=== PATIENT | female | born 1995 | race Two or more races ===

== ENCOUNTER 2020-09-03 06:39 | Observation (INO) | payer MEDICAID ==
[~2020-09-03] VITALS: Ht 152.4 cm; Wt 59.0 kg
[2020-09-03] MEDS ORDERED: PREN1TAB78 MT (07:50)
== END 2020-09-03 08:15 | disposition home or self-care (01) ==
LOC: 8 EST LDRP 06:39
PROVIDERS: ADMIT Specialist; ATTEND Specialist
DX: O46.93 Antepartum hemorrhage, unspecified, third trimester (principal); Z3A.38 38 weeks gestation of pregnancy
CPT/HCPCS: 59025; 76815; 76818; G0378; 99281

== ENCOUNTER 2021-09-01 18:19 | Observation (INO) | payer MEDICARE ==
[~2021-09-01] VITALS: Ht 157.5 cm; Wt 82.6 kg
[~2021-09-01 18:19] MED LIST: PREN1TAB78 MT
== END 2021-09-01 21:00 | disposition home or self-care (01) ==
LOC: 8 EST LDRP 18:19
PROVIDERS: ADMIT Obstetrics & Gynecology; ATTEND Obstetrics & Gynecology
DX: O62.9 Abnormality of forces of labor, unspecified (principal); O42.913 Preterm premature rupture of membranes, unspecified as to length of time between rupture and onset of labor, third trimester; Z3A.32 32 weeks gestation of pregnancy
CPT/HCPCS: 59025; 76815; 76818; G0378; 99281

== ENCOUNTER 2021-09-26 20:14 | Observation (INO) | payer MEDICARE ==
[~2021-09-26] VITALS: Ht 152.4 cm; Wt 56.7 kg
[2021-09-26] MEDS ORDERED: FERR-71 PO (20:56)
[2021-09-26] MEDS ORDERED: LACTATED RINGERS 500 ML IV NR (22:30)
[2021-09-26] MEDS ORDERED: LACTATED RINGERS 1,000 ML IV SCH (23:00)
[2021-09-26 23:28] LABS: CLARITY URINE CLEAR (CLEAR); COLOR URINE YELLOW (YELLOW); KETONES URINE NEGATIVE (NEGATIVE); LEUKOCYTE ESTERASE URINE TRACE (NEGATIVE); NITRITE URINE NEGATIVE (NEGATIVE); OCCULT BLOOD URINE NEGATIVE (NEGATIVE); PROTEIN URINE NEGATIVE (NEGATIVE); SPECIFIC GRAVITY URINE 1.008 (1.005-1.030); UROBILINOGEN URINE 0.2 E.U./dL (0.2-1.0)
== END 2021-09-27 01:40 | disposition home or self-care (01) ==
LOC: 8 EST LDRP 20:14
PROVIDERS: ADMIT Obstetrics & Gynecology; ATTEND Obstetrics & Gynecology
DX: O26.893 Other specified pregnancy related conditions, third trimester (principal); R10.30 Lower abdominal pain, unspecified; Z3A.36 36 weeks gestation of pregnancy
CPT/HCPCS: 76815; 76818; 81003; 96360; 99281; G0378; 59025; 96361

== ENCOUNTER 2021-10-14 17:26 | Observation (INO) | payer MEDICARE ==
[~2021-10-14] VITALS: Ht 152.4 cm; Wt 56.2 kg
[~2021-10-14 17:26] MED LIST changes: +FERR-71 PO
== END 2021-10-14 19:02 | disposition home or self-care (01) ==
LOC: 8 EST LDRP 17:26
PROVIDERS: ADMIT Obstetrics & Gynecology; ATTEND Obstetrics & Gynecology
DX: O26.893 Other specified pregnancy related conditions, third trimester (principal); R10.2 Pelvic and perineal pain; O21.2 Late vomiting of pregnancy; Z3A.38 38 weeks gestation of pregnancy
CPT/HCPCS: 59025; 99281; G0378; G0379

== ENCOUNTER 2021-10-23 19:17 | Observation (INO) | payer MEDICARE ==
[2021-10-29] MEDS ORDERED: IBUP-2030 PO (07:06)
== END 2021-10-23 21:28 | disposition home or self-care (01) ==
LOC: 8 EST LDRP 19:17
PROVIDERS: ADMIT Obstetrics & Gynecology; ATTEND Obstetrics & Gynecology
DX: O62.9 Abnormality of forces of labor, unspecified (principal); O48.0 Post-term pregnancy; Z3A.40 40 weeks gestation of pregnancy
CPT/HCPCS: 59025; 76815; 76818; G0378; 99281

== ENCOUNTER 2023-02-16 15:56 | Observation (INO) | payer MEDICARE ==
[~2023-02-16] VITALS: Ht 144.8 cm; Wt 49.4 kg
[~2023-02-16 15:56] MED LIST changes: +IBUP-2030 PO
[2023-02-16] MEDS ORDERED: RHO(D) IMMUNE GLOBULIN 300 MCG/SYR IM ONE (19:30)
[2023-02-16] MEDS ORDERED: CARBOPROST TROMETHAMINE 250 MCG/ML AMPUL IM PRN (19:30)
[2023-02-16] MEDS ORDERED: MISOPROSTOL 100MCG TABLET VG SCH (19:30)
[2023-02-16] MEDS ORDERED: METHYLERGONOVINE MALEATE 0.2 MG/ML IM PRN (19:30)
[2023-02-16] MEDS: LACTATED RINGERS 1,000 ML IV SCH (19:55)
[2023-02-16] MEDS: MISOPROSTOL 100MCG TABLET VG SCH (19:59)
[2023-02-16 20:32] LABS: BASOPHILS % 0.5 % (0.0-2.0); EOSINOPHILS % 0.6 % (0.0-5.0); HEMATOCRIT. 32.4 % (36.0-48.0); HEMOGLOBIN. 10.1 g/dL (12.0-16.0); LYMPHOCYTES % 23.5 % (20.0-50.0); MEAN CORPUSCULAR HEMOGLOBIN 23.8 pg (28.0-32.0); MEAN PLATELET VOLUME 8.9 fl (7.4-10.4); MONOCYTES % 6.5 % (2.0-8.0); NEUTROPHILS % 68.9 % (40.0-76.0); PLATELET 306 x1000/uL (130-400); RED BLOOD CELL COUNT 4.26 mill/uL (4.2-5.4); RED CELL DISTRIBUTION WIDTH 16.7 % (11.6-14.6)
[2023-02-16 21:10] LABS: HEPATITIS B SURFACE ANTIGEN NEGATIVE
[2023-02-16 23:39] LABS: CLARITY URINE CLEAR (CLEAR); COLOR URINE YELLOW (YELLOW); KETONES URINE NEGATIVE (NEGATIVE); LEUKOCYTE ESTERASE URINE TRACE (NEGATIVE); NITRITE URINE NEGATIVE (NEGATIVE); OCCULT BLOOD URINE NEGATIVE (NEGATIVE); PROTEIN URINE NEGATIVE (NEGATIVE); SPECIFIC GRAVITY URINE 1.026 (1.005-1.030); UROBILINOGEN URINE 0.2 E.U./dL (0.2-1.0)
[2023-02-16 23:50] LABS: *AMPHETAMINES SCREEN URINE NEGATIVE (NEGATIVE); *BARBITURATES SCREEN URINE NEGATIVE (NEGATIVE); *BENZODIAZEPINES SCREEN URINE NEGATIVE (NEGATIVE); *COCAINE SCREEN URINE NEGATIVE (NEGATIVE); CANNABINOID URINE SCREEN NEGATIVE (NEGATIVE); METHADONE URINE SCREEN NEGATIVE (NEGATIVE); OPIATES URINE SCREEN NEGATIVE (NEGATIVE); PHENCYCLIDINE URINE SCREEN NEGATIVE (NEGATIVE)
[2023-02-17] MEDS: MISOPROSTOL 100MCG TABLET VG SCH ×2 (00:16→04:09)
[2023-02-17] MEDS: LACTATED RINGERS 1,000 ML IV SCH (04:09)
[2023-02-17] MEDS ORDERED: MEPERIDINE HCL/PF 25MG/ML CPJ IM PRN (04:30)
[2023-02-17] MEDS: ONDANSETRON HCL 4MG/2ML INJ IV PRN (04:47)
[2023-02-17] MEDS: OXYTOCIN 30 UNITS/500ML NS PMX 500 ML IV SCH ×2 (06:48→10:08)
[2023-02-17 07:26] LABS: BASOPHILS % 0.4 % (0.0-2.0); EOSINOPHILS % 0.4 % (0.0-5.0); HEMATOCRIT. 28.8 % (36.0-48.0); HEMOGLOBIN. 9.4 g/dL (12.0-16.0); LYMPHOCYTES % 29.6 % (20.0-50.0); MEAN CORPUSCULAR HEMOGLOBIN 24.1 pg (28.0-32.0); MEAN CORPUSCULAR VOLUME 74.3 fL (81.0-99.0); MEAN PLATELET VOLUME 8.5 fl (7.4-10.4); MONOCYTES % 8.8 % (2.0-8.0); NEUTROPHILS % 60.8 % (40.0-76.0); PLATELET 279 x1000/uL (130-400); RED BLOOD CELL COUNT 3.88 mill/uL (4.2-5.4); RED CELL DISTRIBUTION WIDTH 16.4 % (11.6-14.6)
[2023-02-17] MEDS ORDERED: IBUPROFEN 400MG TABLET PO PRN (11:15)
[2023-02-17] MEDS ORDERED: IBUPROFEN 800MG TABLET PO PRN (11:15)
[2023-02-17] MEDS ORDERED: OXYTOCIN 30 UNITS/500ML NS PMX 500 ML IV SCH (11:15)
[2023-02-17 13:00] VITALS: BP 91/52; PULSE 72; RESP 18; TEMP 98.9; O2SAT 99
[2023-02-17 17:30] VITALS: BP 86/47; PULSE 68; RESP 18; TEMP 99
[2023-02-17 19:30] VITALS: BP 93/53; PULSE 67; RESP 20; TEMP 98.4; O2SAT 98
[2023-02-18] MEDS ORDERED: LACTATED RINGERS 1,000 ML IV SCH (03:00)
[2023-02-18 04:00] VITALS: BP 93/56; PULSE 88; RESP 18; TEMP 98.7
[2023-02-18 08:00] VITALS: BP 98/60; PULSE 71; RESP 18; TEMP 98.6; O2SAT 100
[2023-02-18] MEDS: ONDANSETRON HCL 4MG/2ML INJ IV PRN (08:36)
[2023-02-23 05:13] LABS: CYTOMEGALOVIRUS IGM AB < 30.0 AU/mL (0.0-29.9)
== END 2023-02-18 13:50 | disposition home or self-care (01) ==
LOC: 8 EST LDRP 15:56
PROVIDERS: ADMIT Obstetrics & Gynecology; ATTEND Obstetrics & Gynecology
DX: O36.4XX0 Maternal care for intrauterine death, not applicable or unspecified (principal); Z3A.16 16 weeks gestation of pregnancy; Z79.899 Other long term (current) drug therapy
CPT/HCPCS: 80305; 81003; 86703; 85025 ×2; 85730; 86850; 86900; 86901; 87340; 86592; 36415 ×2; 76815; 86762 ×2; 83036; 84443; 88309; 88307; 96372; 96374; 59821; 86695; 86696; 86788; 86789; 86645; 86644; 96376; J2405 ×2; G0378 ×3; 99281; J7120; J2590

== ENCOUNTER 2023-06-05 16:26 | Emergency (ER) | payer MEDICARE ==
[~2023-06-05] VITALS: Ht 152.4 cm; Wt 52.0 kg
[~2023-06-05 16:26] MED LIST changes: -FERR-71 PO; -PREN1TAB78 MT
[2023-06-05 16:28] VITALS: O2SAT 100
[2023-06-05 18:22] LABS: BASOPHILS % 0.6 % (0.0-2.0); DIFFERENTIAL COMMENT 0; EOSINOPHILS % 0.2 % (0.0-5.0); HEMATOCRIT. 33.7 % (36.0-48.0); HEMOGLOBIN. 10.3 g/dL (12.0-16.0); LYMPHOCYTES % 17.4 % (20.0-50.0); MEAN CORPUSCULAR HEMOGLOBIN 21.9 pg (28.0-32.0); MEAN CORPUSCULAR HGB CONC 30.6 g/dL (31.0-37.0); MEAN CORPUSCULAR VOLUME 71.5 fL (81.0-99.0); MEAN PLATELET VOLUME 8.4 fl (7.4-10.4); MONOCYTES % 8.3 % (2.0-8.0); NEUTROPHILS % 73.5 % (40.0-76.0); PLATELET 428 x1000/uL (130-400); RED BLOOD CELL COUNT 4.71 mill/uL (4.2-5.4); RED CELL DISTRIBUTION WIDTH 17.6 % (11.6-14.6); WHITE BLOOD COUNT 11.4 x1000/uL (4.5-11.0)
[2023-06-05 18:35] LABS: CHLORIDE 108 mEq/L (98-107); INDEX HEMOLYSI 1 (1-3); INDEX ICTERIC 1 (1-4); INDEX LIPEMIC 1 (1-3); POTASSIUM 3.7 mEq/L (3.5-5.1); SODIUM 138 mEq/L (136-145)
[2023-06-05 18:36] LABS: CLARITY URINE CLOUDY (CLEAR); COLOR URINE YELLOW (YELLOW); GLUCOSE URINE NEGATIVE (NEGATIVE); KETONES URINE NEGATIVE (NEGATIVE); LEUKOCYTE ESTERASE URINE TRACE (NEGATIVE); NITRITE URINE NEGATIVE (NEGATIVE); OCCULT BLOOD URINE 2+ (NEGATIVE); PH URINE 6.5 (4.5-8.0); PROTEIN URINE NEGATIVE (NEGATIVE); SPECIFIC GRAVITY URINE 1.008 (1.005-1.030); UROBILINOGEN URINE 0.2 E.U./dL (0.2-1.0)
[2023-06-05 18:37] LABS: CALCIUM 9.3 mg/dL (8.5-10.1)
[2023-06-05 18:39] LABS: SQUAMOUS EPITHELIAL CELL URINE 2+ /lpf (RARE/1+); WBC URINE 0-2 /hpf (0-2); YEAST URINE NONE SEEN
[2023-06-05 18:43] LABS: ALANINE AMINOTRANSFERASE 15 IU/L (13-61); ALBUMIN 4.3 g/dL (3.4-5.0); ASPARTATE AMINOTRANSFERASE 25 IU/L (15-37); CARBON DIOXIDE 26 mEq/L (21-32); CREATININE 0.6 mg/dL (0.6-1.3); GLUCOSE 102 mg/dL (70-105); PROTEIN TOTAL 8.4 g/dL (6.0-8.3); UREA NITROGEN BLOOD 9 mg/dL (7-21)
[2023-06-05 18:51] LABS: HCG SCREEN NEGATIVE
[2023-06-05 19:06] LABS: BACTERIA URINE 1+
[2023-06-06 06:00] VITALS: BP 134/80; PULSE 85; RESP 16; TEMP 98.3
== END 2023-06-06 06:01 | disposition home or self-care (01) ==
LOC: ER 16:26
DX: R53.1 Weakness (principal)
CPT/HCPCS: 36415; 71045; 80053; 81003; 84703; 85025; 93005; 99285